=== PATIENT | female | born 1980 | race Two or more races ===

== ENCOUNTER 2019-05-20 10:56 | Inpatient (IN) | payer SELFPAY ==
[2019-05-20] MEDS ORDERED: Sodium Chloride 0.9% 10 ML Syringe FLUSH PRN (11:07)
[2019-05-20] MEDS ORDERED: Nalbuphine 10 MG/ML Syringe IVPUSH PRN (11:07)
[2019-05-20] MEDS ORDERED: Ondansetron 4 MG/2 ML SDV IVPUSH PRN (11:07)
--- NOTE | 2019-05-20 11:09 | PCM.LDHP ---
L&D History of Present Illness - General Date of Service: 05/20/19 Admit Problem/Dx: Patient Status Order with Admit Dx/Problem 05/20/19 11:07 Patient Status [ADT] Routine Admission Diagnosis/Problem Admission Diagnosis/Problem Decreased movements in third trimester Source of Information: Patient History Limitations: Reports: No Limitations - History of Present Illness Introduction:: Patient is a 39-year-old at 40-0/7 weeks gestation who presents for induction of labor after clinic appointment earlier today. At her clinic appointment noted concerns of decreased movement. She had similar concerns about a week ago. However, this week nonreactive NST was found with testing. Otherwise doing well. Some cramping and pressure. 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 (Approximate): - Past Surgical History Female Surgical History: Reports: Breast Implant Social & Family History - Tobacco Use Smoking Status *Q: Never Smoker - Alcohol Use Alcohol Use History: No - Recreational Drug Use Recreational Drug Use: No H&P Review of Systems - Review of Systems: Review Of Systems: See Below General: Reports: No Symptoms Pulmonary: Reports: No Symptoms Cardiovascular: Reports: No Symptoms Gastrointestinal: Reports: Abdominal Pain (cramping) Genitourinary: Reports: No Symptoms Musculoskeletal: Reports: No Symptoms Psychiatric: Reports: No Symptoms Neurological: Reports: No Symptoms L&D Exam - Exam Exam: See Below - OB Specific Contraction Intensity: Irritability Movement: Active Heart Tones: Present Heart Tones per Min: 125 Heart Rate (FHR) Variability: Moderate (6-25 bmp) Presentation: Vertex - Jackson Score Jackson Score Cervix Position: Midposition Jackson Score Consistency: Soft Jackson Score Effacement: 51-70% Jackson Score Dilation: 3-4 cm Jackson Score Infant's Station: -2 Jackson Score Total: 8 - Exam General: Alert, Oriented, Cooperative Lungs: Clear to Auscultation, Normal Respiratory Effort Cardiovascular: Regular Rate, Regular Rhythm GI/Abdominal Exam: Soft, Non-Tender Genitourinary: Normal external exam Extremities: Normal Inspection Skin: Warm, Dry, Intact - Problem List (1) 40 weeks gestation of SNOMED Code(s): 92793146 ICD Code: Z3A.40 - 40 WEEKS GESTATION OF Status: Acute Current Visit: Yes (2) Decreased movement SNOMED Code(s): 142537049 ICD Code: O36.8190 - DECREASED MOVEMENTS, UNSP TRIMESTER, UNSP Status : Acute Current Visit: Yes Qualifiers: Fetus number: single or unspecified fetus Trimester: third trimester Qualified Code(s): O36.8130 - Decreased movements, third trimester, not applicable or unspecified Problem List Initiated/Reviewed/Updated: Yes Orders Last 24hrs: Active Orders 24 hr Category Date Time Status Patient Status [ADT] Routine ADT 05/20/19 11:07 Ordered Communication Order [RC] ASDIRECTED Care 05/20/19 11:07 Ordered Communication Order [RC] ASDIRECTED Care 05/20/19 11:07 Ordered Communication Order [RC] ASDIRECTED Care 05/20/19 11:07 Ordered Heart Tones [RC] ASDIRECTED Care 05/20/19 11:07 Ordered Non Stress Test [RC] PER UNIT ROUTINE Care 05/20/19 11:07 Ordered Notify Provider [RC] ASDIRECTED Care 05/20/19 11:07 Ordered Notify Provider [RC] PRN Care 05/20/19 11:07 Ordered Peripheral IV Care [RC] . DIRECTED Care 05/20/19 11:07 Ordered Up ad Rubina [RC] ASDIRECTED Care 05/20/19 11:07 Ordered Vaginal Exam [RC] ASDIRECTED Care 05/20/19 11:07 Ordered Vital Signs [RC] ASDIRECTED Care 05/20/19 11:07 Ordered Regular Diet [DIET] Diet 05/20/19 Lunch Ordered CBC W/O DIFF,HEMOGRAM [HEME] Routine Lab 05/20/19 11:07 Ordered RAPID PLASMA REAGIN,RPR [CHEM] Routine Lab 05/20/19 11:07 Ordered TYPE AND SCREEN [BBK] Routine Lab 05/20/19 11:07 Ordered Lactated Ringers [Ringers, Lactated] 1,000 ml Med 05/20/19 11:15 Ordered IV ASDIRECTED Nalbuphine [Nubain] Med 05/20/19 11:07 Ordered 10 mg IVPUSH Q2H PRN Ondansetron [Zofran] Med 05/20/19 11:07 Ordered 4 mg IVPUSH Q4H PRN Oxytocin/Lactated Ringers [Pitocin in LR 10 Units/1,000 Med 05/20/19 11:15 Ordered ML] 10 unit in 1,000 ml IV .CONTINUOUS Oxytocin/Lactated Ringers [Pitocin in LR 10 Units/1,000 Med 05/20/19 11:15 Ordered ML] 10 unit in 1,000 ml IV TITRATE Sodium Chloride 0.9% [Saline Flush] Med 05/20/19 11:07 Ordered 10 ml FLUSH ASDIRECTED PRN Electronic Heart Tones Ext w TOCO [WOMSER] Ot 05/20/19 11:07 Ordered Routine Electronic Heart Tones Internal [WOMSER] Per Unit Ot 05/20/19 11:07 Ordered Routine Peripheral IV Insertion Adult [OM.PC] Routine Ot 05/20/19 11:07 Ordered Resuscitation Status Routine Resus Stat 05/20/19 11:07 Ordered Assessment/Plan Comment:: * Labs to be done * GBS negative, no need for antibiotics * Pitoicin for IOL. AROM when able * Pain management per patient preference * Anticipate
[2019-05-20] MEDS ORDERED: Oxytocin/Lactated Ringers 10 UNIT/1,000 ML BAG IV SCH ×2 (11:15)
[2019-05-20] MEDS: Lactated Ringers 1,000 ML IV SCH ×3 (12:06→20:59)
[2019-05-20] MEDS ORDERED: ePHEDrine 50 MG/ML SDV IVPUSH PRN (12:20)
[2019-05-20] MEDS ORDERED: diphenhydrAMINE 50 MG/ML SDV IVPUSH PRN (12:20)
[2019-05-20] MEDS ORDERED: fentaNYL/Bupivacaine/NS 2 MCG-0.125% 250 ML EPIDUR PRN (12:20)
[2019-05-20] MEDS ORDERED: fentaNYL 100 MCG/2 ML SDV EPIDUR PRN (12:20)
--- NOTE | 2019-05-20 12:24 | PCM.PREANE ---
Preanesthetic Assessment - Procedure Proposed Procedure: keyla - Anesthesia/Transfusion/Family Hx Anesthesia History: Prior Anesthesia Without Reaction Family History of Anesthesia Reaction: No Transfusion History: No Prior Transfusion(s) - Review of Systems General: No Symptoms Pulmonary: No Symptoms Cardiovascular: No Symptoms Gastrointestinal: No Symptoms Neurological: No Symptoms Other: Reports: None - Physical Assessment Vital Signs: Last Vital Signs Temp 99.1 F 05/20/19 11:11 Pulse 73 05/20/19 11:11 Resp 16 05/20/19 11:11 BP 116/66 05/20/19 11:11 Pulse Ox 97 05/20/19 11:11 Height: 5 ft 5 in Weight: 87.09 kg ASA Class: 2 Mental Status: Alert & Oriented x3 Airway Class: Mallampati = 1 Dentition: Reports: Normal Dentition, Missing Tooth/Teeth Thyro-Mental Finger Breadths: 3 (braces) Mouth Opening Finger Breadths: 3 ROM/Head Extension: Full Lungs: Clear to Auscultation, Normal Respiratory Effort Cardiovascular: Regular Rate, Regular Rhythm - Lab Values: Laboratory Last Values WBC 12.24 K/mm3 (3.98-10.04) H 05/20/19 11:35 RBC 4.39 M/mm3 (3.98-5.22) 05/20/19 11:35 Hgb 14.0 gm/dl (11.2-15.7) 05/20/19 11:35 Hct 41.5 % (34.1-44.9) 05/20/19 11:35 MCV 94.5 fl (79.4-94.8) 05/20/19 11:35 MCH 31.9 pg (25.6-32.2) 05/20/19 11:35 MCHC 33.7 g/dl (32.2-35.5) 05/20/19 11:35 RDW Std Deviation 43.5 fL (36.4-46.3) 05/20/19 11:35 Plt Count 189 K/mm3 (182-369) 05/20/19 11:35 MPV 11.8 fl (9.4-12.3) 05/20/19 11:35 - Allergies Allergies/Adverse Reactions: Allergies Allergy/AdvReac Type Severity Reaction Status Date / Time No Known Allergies Allergy Verified 03/31/19 05:11 - Blood Blood Available: No - Acknowledgements Anesthesia Type Planned: Epidural Pt an Appropriate Candidate for the Planned Anesthesia: Yes Alternatives and Risks of Anesthesia Discussed w Pt/Guardian: Yes Pt/Guardian Understands and Agrees with Anesthesia Plan: Yes PreAnesthesia Questionnaire Cardiovascular History: Reports: None Respiratory History: Reports: None Gastrointestinal History: Reports: None 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 Musculoskeletal History: Reports: None Oncologic (Cancer) History: Reports: None - Past Surgical History Female Surgical History: Reports: Breast Implant - History Comment History Comment: vitamin c and and mg omega3 - SUBSTANCE USE Smoking Status *Q: Never Smoker Tobacco Use Within Last Twelve Months: No Second Hand Smoke Exposure: Yes Days Per Week of Alcohol Use: 0 Recreational Drug Use History: No - CURRENT (IN HOUSE) MEDS Current Meds: Current Medications Lactated Ringer's (Ringers, Lactated) 1,000 mls @ 40 mls/hr IV ASDIRECTED THERESA Last Admin: 05/20/19 12:06 Dose: 40 mls/hr Oxytocin/Lactated Ringer's (Pitocin In Lr 10 Units/1,000 Ml) 10 unit in 1,000 mls @ 12 mls/hr IV TITRATE THERESA; Protocol Last Admin: 05/20/19 12:07 Dose: 2 munits/min, 12 mls/hr Oxytocin/Lactated Ringer's (Pitocin In Lr 10 Units/1,000 Ml) 10 unit in 1,000 mls @ 500 mls/hr IV .CONTINUOUS THERESA Nalbuphine HCl (Nubain) 10 mg IVPUSH Q2H PRN PRN Reason: Pain Ondansetron HCl (Zofran) 4 mg IVPUSH Q4H PRN PRN Reason: Nausea/Vomiting Sodium Chloride (Saline Flush) 10 ml FLUSH ASDIRECTED PRN PRN Reason: Keep Vein Open
--- NOTE | 2019-05-20 19:12 | PCM.DEL ---
L & D Note - General Info Date of Service: 05/20/19 - Delivery Note Labor: Induced by ARM, Induced by Oxytocin Delivery Outcome: Livebirth Infant Delivery Method: Spontaneous Vaginal Delivery-Single Infant Delivery Mode: Spontaneous Presentation: Right Occiput Anterior (ELEANOR) Nuchal Cord: None Anesthesia Type: Epidural Amniotic Fluid Description: Clear Episiotomy Type: None Laceration: 2nd Degree, Perineal, Other (periclitoral) Suture type: Vicryl Suture size: 2-0 Placenta: Intact, Abnormal Cord: 3 Vessels Estimated Blood Loss: 300 [place]: Bulb Syringe, Stimulated, Warmed, [place] Used, Warmer Used Delivery Comments (Free Text/Narrative):: patient found to be complete and began pushing. With maternal pushing effort head delivered from an ELEANOR presentation. No nuchal cord present. With gentle downward traction the shoulders and body delivered. Infant placed on maternal abdomen. Cord clamped and cut. Cord blood obtained. Placenta allowed time to separate and expelled intact. Inspection of the perineum showed a 2nd degree laceration which was repaired with a 2-0 vicryl in the typical fashion. Also notable was brisk bleeding from a periclitoral source. This was controlled with several 3-0 vicryl sutures. - General Info Date of Service: 05/20/19 - Patient Data Vitals - Most Recent: Last Vital Signs Temp 37.3 C 05/20/19 11:11 Pulse 73 05/20/19 11:11 Resp 16 05/20/19 11:11 BP 116/66 05/20/19 11:11 Pulse Ox 97 05/20/19 11:11 Weight - Most Recent: 87.09 kg I&O - Last 24 Hours: Intake & Output 05/20/19 05/20/19 05/20/19 06:59 14:59 22:59 Intake Total 1999 120 Output Total 350 Balance 1999 - - Problem List & Annotations (1) 40 weeks gestation of SNOMED Code(s): 46690745 Code(s): Z3A.40 - 40 WEEKS GESTATION OF Status: Acute Current Visit: Yes (2) Decreased movement SNOMED Code(s): 205568498 Code(s): O36.8190 - DECREASED MOVEMENTS, UNSP TRIMESTER, UNSP Status : Acute Current Visit: Yes Qualifiers: Fetus number: single or unspecified fetus Trimester: third trimester Qualified Code(s): O36.8130 - Decreased movements, third trimester, not applicable or unspecified (3) Vaginal delivery SNOMED Code(s): 304078200 Code(s): O80 - ENCOUNTER FOR FULL-TERM UNCOMPLICATED DELIVERY Status: Acute Current Visit: Yes - Problem List Review Problem List Initiated/Reviewed/Updated: Yes - My Orders Last 24 Hours: My Active Orders 05/20/19 11:07 Patient Status [ADT] Routine Communication Order [RC] ASDIRECTED Communication Order [RC] ASDIRECTED Communication Order [RC] ASDIRECTED Heart Tones [RC] ASDIRECTED Notify Provider [RC] ASDIRECTED Notify Provider [RC] PRN Peripheral IV Care [RC] . DIRECTED Up ad Rubina [RC] ASDIRECTED Vaginal Exam [RC] ASDIRECTED Vital Signs [RC] ASDIRECTED Nalbuphine [Nubain] 10 mg IVPUSH Q2H PRN Ondansetron [Zofran] 4 mg IVPUSH Q4H PRN Sodium Chloride 0.9% [Saline Flush] 10 ml FLUSH ASDIRECTED PRN Electronic Heart Tones Ext w TOCO [WOMSER] Routine Electronic Heart Tones Internal [WOMSER] Per Unit Routine Peripheral IV Insertion Adult [OM.PC] Routine Resuscitation Status Routine 05/20/19 11:15 Lactated Ringers [Ringers, Lactated] 1,000 ml IV ASDIRECTED Oxytocin/Lactated Ringers [Pitocin in LR 10 Units/1,000 ML] 10 unit in 1,000 ml IV .CONTINUOUS Oxytocin/Lactated Ringers [Pitocin in LR 10 Units/1,000 ML] 10 unit in 1,000 ml IV TITRATE 05/20/19 11:35 RAPID PLASMA REAGIN,RPR [CHEM] Routine 05/20/19 13:01 PATIENT RETYPE [BBK] Routine 05/20/19 Lunch Regular Diet [DIET] - Assessment Assessment:: 39 y/o G2 now P2 PPD#0 from at 40 0/7 wks - Plan Plan:: * Routine cares * Breast feeding * Discharge home in 1-2 days
[2019-05-20] MEDS ORDERED: Acetaminophen 325 MG Tab PO PRN (19:31)
[2019-05-20] MEDS ORDERED: Witch Hazel Medicated Pads 40/Jar TOP PRN (19:31)
[2019-05-20] MEDS ORDERED: Benzocaine/Menthol 20%-0.5% Spray 56 GM Canister TOP PRN (19:31)
[2019-05-20] MEDS: Docusate Sodium 100 MG Cap PO PRN (20:02)
[2019-05-20] MEDS: Ibuprofen 600 MG Tab PO PRN (20:02)
[2019-05-21] MEDS ORDERED: Bupivacaine 0.25% 10 ML SDV ONE
--- NOTE | 2019-05-21 07:10 | PCM.PNPP ---
- General Info Date of Service: 05/21/19 Functional Status: Reports: Pain Controlled, Tolerating Diet, Ambulating, Urinating - Review of Systems General: Reports: No Symptoms Pulmonary: Reports: No Symptoms Cardiovascular: Reports: No Symptoms Gastrointestinal: Reports: No Symptoms Genitourinary: Reports: No Symptoms Musculoskeletal: Reports: No Symptoms Systems Review Comment:: Doing better since overnight. Did have a syncopal episode when first got up after delivery. No further concerns - Patient Data Vital Signs - Most Recent: Last Vital Signs Temp 36.7 C 05/21/19 03:05 Pulse 71 05/21/19 03:05 Resp 14 05/21/19 03:05 BP 92/50 L 05/21/19 03:05 Pulse Ox 98 05/21/19 03:05 Weight - Most Recent: 87.09 kg I&O - Last 24 Hours: Intake & Output 05/20/19 05/21/19 05/21/19 22:59 06:59 14:59 Intake Total 120 3500 Output Total 350 Balance -230 3500 Lab Results - Last 24 Hours: Laboratory Results - last 24 hr 05/20/19 05/20/19 05/20/19 Range/Units 11:35 11:35 11:35 WBC 12.24 H (3.98-10.04) K/mm3 RBC 4.39 (3.98-5.22) M/mm3 Hgb 14.0 (11.2-15.7) gm/dl Hct 41.5 (34.1-44.9) % MCV 94.5 (79.4-94.8) fl MCH 31.9 (25.6-32.2) pg MCHC 33.7 (32.2-35.5) g/dl RDW Std Deviation 43.5 (36.4-46.3) fL Plt Count 189 (182-369) K/mm3 MPV 11.8 (9.4-12.3) fl RPR Non-reactive (NONREACTIVE) Blood Type O POSITIVE Gel Antibody Screen Negative Med Orders - Current: Current Medications Acetaminophen (Tylenol) 650 mg PO Q4H PRN PRN Reason: mild pain or fever Benzocaine/Menthol (Dermoplast Pain Relief Jackson) 0 gm TOP ASDIRECTED PRN PRN Reason: Perineal Comfort Measure Last Admin: 05/20/19 20:03 Dose: 1 canister Docusate Sodium (Colace) 100 mg PO BID PRN PRN Reason: Constipation Last Admin: 05/20/19 20:02 Dose: 100 mg Ibuprofen (Motrin) 600 mg PO Q6H PRN PRN Reason: Mild pain or fever Last Admin: 05/20/19 20:02 Dose: 600 mg Witch Mulu (Tucks) 1 pad TOP ASDIRECTED PRN PRN Reason: Perineal Comfort Measure Last Admin: 05/20/19 20:02 Dose: 1 tub Discontinued Medications Diphenhydramine HCl (Benadryl) 25 mg IVPUSH Q6H PRN PRN Reason: pruritis Ephedrine Sulfate (Ephedrine Sulfate) 5 mg IVPUSH ASDIRECTED PRN PRN Reason: Hypotension Fentanyl (Sublimaze) 100 mcg EPIDUR Q3H PRN PRN Reason: Pain Last Admin: 05/20/19 15:36 Dose: 100 mcg Fentanyl/Bupivacaine HCl (Fentanyl/Bupivacaine/Ns 2 Mcg-0.125% 250 Ml) 250 ml EPIDUR CONTINUOUS PRN PRN Reason: Pain Last Admin: 05/20/19 15:37 Dose: 250 ml Lactated Ringer's (Ringers, Lactated) 1,000 mls @ 40 mls/hr IV ASDIRECTED THERESA Last Admin: 05/20/19 20:59 Dose: 40 mls/hr Oxytocin/Lactated Ringer's (Pitocin In Lr 10 Units/1,000 Ml) 10 unit in 1,000 mls @ 12 mls/hr IV TITRATE THERESA; Protocol Last Titration: 05/20/19 14:41 Dose: 8 munits/min, 48 mls/hr Oxytocin/Lactated Ringer's (Pitocin In Lr 10 Units/1,000 Ml) 10 unit in 1,000 mls @ 500 mls/hr IV .CONTINUOUS THERESA Last Admin: 05/20/19 20:59 Dose: 500 mls/hr Nalbuphine HCl (Nubain) 10 mg IVPUSH Q2H PRN PRN Reason: Pain Ondansetron HCl (Zofran) 4 mg IVPUSH Q4H PRN PRN Reason: Nausea/Vomiting Sodium Chloride (Saline Flush) 10 ml FLUSH ASDIRECTED PRN PRN Reason: Keep Vein Open - Interaction Disposition, : [place] in Room with Family Interaction: Holding Feeding: Breastfed Infant; Nursed Well Support Person: Significant Other - Recovery Exam Fundal Tone: Firm Fundal Level: 1 Fingerbreadths Below Umbilicus Fundal Placement: Midline Lochia Amount: Small Lochia Color: Rubra/Red Perineum Description: Other (see below) Other Perinuem Description: 2nd degree lac with repair Episiotomy/Laceration: Approximated Bladder Status: Voiding Urinary Elimination: Voided - Exam General: Alert, Oriented, Cooperative GI/Abdominal Exam: Soft, Non-Tender Extremities: Normal Inspection Skin: Warm, Dry, Intact - Problem List & Annotations (1) 40 weeks gestation of SNOMED Code(s): 66221584 Code(s): Z3A.40 - 40 WEEKS GESTATION OF Status: Acute Current Visit: Yes (2) Decreased movement SNOMED Code(s): 002414365 Code(s): O36.8190 - DECREASED MOVEMENTS, UNSP TRIMESTER, UNSP Status : Acute Current Visit: Yes Qualifiers: Fetus number: single or unspecified fetus Trimester: third trimester Qualified Code(s): O36.8130 - Decreased movements, third trimester, not applicable or unspecified (3) Vaginal delivery SNOMED Code(s): 790231709 Code(s): O80 - ENCOUNTER FOR FULL-TERM UNCOMPLICATED DELIVERY Status: Acute Current Visit: Yes - Problem List Review Problem List Initiated/Reviewed/Updated: Yes - My Orders Last 24 Hours: My Active Orders 05/20/19 11:07 Communication Order [RC] ASDIRECTED Communication Order [RC] ASDIRECTED Communication Order [RC] ASDIRECTED Heart Tones [RC] ASDIRECTED Notify Provider [RC] ASDIRECTED Notify Provider [RC] PRN Peripheral IV Care [RC] . DIRECTED Up ad Rubina [RC] ASDIRECTED Vaginal Exam [RC] ASDIRECTED Vital Signs [RC] ASDIRECTED Resuscitation Status Routine 05/20/19 19:31 Activity as Tolerated [RC] PER UNIT ROUTINE Vital Signs [RC] 03,09,15,21 Acetaminophen [Tylenol] 650 mg PO Q4H PRN Benzocaine/Menthol [Dermoplast Pain Relief [place]] See Dose Instructions TOP ASDIRECTED PRN Docusate Sodium [Colace] 100 mg PO BID PRN Ibuprofen [Motrin] 600 mg PO Q6H PRN Witch Mulu [Tucks] 1 pad TOP ASDIRECTED PRN Assess Lochia [WOMSER] Per Unit Routine Assess Uterine Involution [WOMSER] Per Unit Routine Breast Pump [WOMSER] Per Unit Routine Heat Therapy [OM.PC] PRN Ice Therapy [OM.PC] Per Unit Routine Perineal Care [OM.PC] Per Unit Routine Peripheral IV Discontinue [OM.PC] Routine Sitz Bath [OM.PC] Per Unit Routine 05/20/19 Dinner Regular Diet [DIET] 05/21/19 19:31 Heat Therapy [OM.PC] PRN - Assessment Assessment:: 39 y/o G2 now P2 PPD#1 from at 40 0/7 wks - Plan Plan:: * Routine cares * Breast feeding * Discharge home today vs tomorrow
--- NOTE | 2019-05-21 07:36 | PCM48HPAN ---
Post Anesthesia Note - EVALUATION WITHIN 48HRS OF ANESTHETIC Vital Signs in Normal Range: Yes Patient Participated in Evaluation: Yes Respiratory Function Stable: Yes Airway Patent: Yes Cardiovascular Function Stable: Yes Hydration Status Stable: Yes Pain Control Satisfactory: Yes Nausea and Vomiting Control Satisfactory: Yes Mental Status Recovered: Yes Vital Signs: Last Vital Signs Temp 36.7 C 05/21/19 03:05 Pulse 71 05/21/19 03:05 Resp 14 05/21/19 03:05 BP 92/50 L 05/21/19 03:05 Pulse Ox 98 05/21/19 03:05 - COMMENTS/OBSERVATIONS Free Text/Narrative:: no anesthesia complications noted
[2019-05-21] MEDS: Ibuprofen 600 MG Tab PO PRN (09:06)
[2019-05-21] MEDS: Docusate Sodium 100 MG Cap PO PRN (09:06)
--- NOTE | 2019-05-21 17:35 | PCM.DCSUM1 ---
Discharge Summary - Discharge Data Discharge Date: 05/21/19 Discharge Disposition: Home, Self-Care 01 Condition: Good - Referral to Home Health Primary Care Physician: Cheryl Hidalgo MD - Discharge Diagnosis/Problem(s) (1) 40 weeks gestation of SNOMED Code(s): 40607607 ICD Code: Z3A.40 - 40 WEEKS GESTATION OF Status: Acute (2) Decreased movement SNOMED Code(s): 237926662 ICD Code: O36.8190 - DECREASED MOVEMENTS, UNSP TRIMESTER, UNSP Status : Acute Qualifiers: Fetus number: single or unspecified fetus Trimester: third trimester Qualified Code(s): O36.8130 - Decreased movements, third trimester, not applicable or unspecified (3) Vaginal delivery SNOMED Code(s): 216654060 ICD Code: O80 - ENCOUNTER FOR FULL-TERM UNCOMPLICATED DELIVERY Status: Acute - Patient Summary/Data Complications: None Recommended Follow-up Testing/Procedures: Follow up in 3-6 weeks for check Hospital Course: Patient is a 39 y/o at 40 0/7 wks who presented for IOL after clinic appt with concerns of decreased FM and non reactive NST. IOL done with pitocin and AROM. She progressed well to complete dilation and underwent an uncomplicated . See delivery note. she did well and was discharged home on PPD#1 - Patient Instructions Diet: Regular Diet as Tolerated Activity: As Tolerated Activity, Other: Pelvic rest for 6 weeks Driving: May Drive Today Showering/Bathing: May Shower Showering/Bathing, Other: May Bathe Notify Provider of: Fever, Increased Pain, Swelling and Redness, Drainage, Nausea and/or Vomiting - Discharge Plan *PRESCRIPTION DRUG MONITORING PROGRAM REVIEWED*: No *COPY OF PRESCRIPTION DRUG MONITORING REPORT IN PATIENT RAFAELA: No Home Medications: Home Meds Acetaminophen [Tylenol] 650 mg PO Q4H PRN tablet 05/21/19 [Rx] Ibuprofen [Motrin] 600 mg PO Q6H PRN tablet 05/21/19 [Rx] Patient Handouts: Vaginal Delivery, Care After Referrals: Cheryl Hidalgo MD [Primary Care Provider] - (3-6 weeks for exam) - Discharge Summary/Plan Comment DC Time >30 min.: No - Patient Data Vitals - Most Recent: Last Vital Signs Temp 36.4 C 05/21/19 08:41 Pulse 67 05/21/19 15:50 Resp 15 05/21/19 15:50 BP 95/57 L 05/21/19 15:50 Pulse Ox 98 05/21/19 15:50 Weight - Most Recent: 87.09 kg I&O - Last 24 hours: Intake & Output 05/21/19 05/21/19 05/21/19 06:59 14:59 22:59 Intake Total 3500 300 Balance 3500 300 Lab Results - Last 24 hrs: Laboratory Results - last 24 hr 05/20/19 Range/Units 11:35 RPR Non-reactive (NONREACTIVE) Med Orders - Current: Current Medications Acetaminophen (Tylenol) 650 mg PO Q4H PRN PRN Reason: mild pain or fever Benzocaine/Menthol (Dermoplast Pain Relief [place]) 0 gm TOP ASDIRECTED PRN PRN Reason: Perineal Comfort Measure Last Admin: 05/20/19 20:03 Dose: 1 canister Docusate Sodium (Colace) 100 mg PO BID PRN PRN Reason: Constipation Last Admin: 05/21/19 09:06 Dose: 100 mg Ibuprofen (Motrin) 600 mg PO Q6H PRN PRN Reason: Mild pain or fever Last Admin: 05/21/19 09:06 Dose: 600 mg Witch Mulu (Tucks) 1 pad TOP ASDIRECTED PRN PRN Reason: Perineal Comfort Measure Last Admin: 05/20/19 20:02 Dose: 1 tub Discontinued Medications Bupivacaine HCl (Sensorcaine-Mpf 0.25%) 10 ml .ROUTE .STK-MED ONE Stop: 05/21/19 00:01 Diphenhydramine HCl (Benadryl) 25 mg IVPUSH Q6H PRN PRN Reason: pruritis Ephedrine Sulfate (Ephedrine Sulfate) 5 mg IVPUSH ASDIRECTED PRN PRN Reason: Hypotension Fentanyl (Sublimaze) 100 mcg EPIDUR Q3H PRN PRN Reason: Pain Last Admin: 05/20/19 15:36 Dose: 100 mcg Fentanyl/Bupivacaine HCl (Fentanyl/Bupivacaine/Ns 2 Mcg-0.125% 250 Ml) 250 ml EPIDUR CONTINUOUS PRN PRN Reason: Pain Last Admin: 05/20/19 15:37 Dose: 250 ml Lactated Ringer's (Ringers, Lactated) 1,000 mls @ 40 mls/hr IV ASDIRECTED THERESA Last Admin: 05/20/19 20:59 Dose: 40 mls/hr Oxytocin/Lactated Ringer's (Pitocin In Lr 10 Units/1,000 Ml) 10 unit in 1,000 mls @ 12 mls/hr IV TITRATE THERESA; Protocol Last Titration: 05/20/19 14:41 Dose: 8 munits/min, 48 mls/hr Oxytocin/Lactated Ringer's (Pitocin In Lr 10 Units/1,000 Ml) 10 unit in 1,000 mls @ 500 mls/hr IV .CONTINUOUS THERESA Last Admin: 05/20/19 20:59 Dose: 500 mls/hr Nalbuphine HCl (Nubain) 10 mg IVPUSH Q2H PRN PRN Reason: Pain Ondansetron HCl (Zofran) 4 mg IVPUSH Q4H PRN PRN Reason: Nausea/Vomiting Sodium Chloride (Saline Flush) 10 ml FLUSH ASDIRECTED PRN PRN Reason: Keep Vein Open
== END 2019-05-21 19:26 | disposition home or self-care (01) | DRG 807 ==
LOC: JD.OB 10:56 → OBSVTOIN 18:33 → JD.OB 18:34
PROVIDERS: ADMIT Obstetrics & Gynecology; ATTEND Obstetrics & Gynecology
PROC: 10E0XZZ Delivery of Products of Conception, External Approach (ICD-10-PCS; principal; 2019-05-20)
PROC: 0KQM0ZZ Repair Perineum Muscle, Open Approach (ICD-10-PCS; 2019-05-20)
PROC: 10907ZC Drainage of Amniotic Fluid, Therapeutic from Products of Conception, Via Natural or Artificial Opening (ICD-10-PCS; 2019-05-20)
PROC: 3E033VJ Introduction of Other Hormone into Peripheral Vein, Percutaneous Approach (ICD-10-PCS; 2019-05-20)
PROC: 3E0R3BZ Introduction of Anesthetic Agent into Spinal Canal, Percutaneous Approach (ICD-10-PCS; 2019-05-20)
DX: O36.8130 Decreased fetal movements, third trimester, not applicable or unspecified (principal); Z37.0 Single live birth; O70.1 Second degree perineal laceration during delivery; Z3A.40 40 weeks gestation of pregnancy
CPT/HCPCS: 36415; 51701; 51702; 59020; 59409; 85027; 86592; 86850; 86900; 86901; A9270-GY; J2590; J3010; J3490; J7120

== ENCOUNTER 2019-07-04 19:41 | Emergency (ER) | payer SELFPAY ==
--- NOTE | 2019-07-04 20:11 | EDM.PDOC ---
ED HPI GENERAL MEDICAL PROBLEM - General Chief Complaint: ENT Problem Stated Complaint: FEVER/THROAT CLOSING Time Seen by Provider: 07/04/19 19:55 Source of Information: Reports: Patient, Family (Daughter + other teen) History Limitations: Reports: No Limitations - History of Present Illness INITIAL COMMENTS - FREE TEXT/NARRATIVE: Ms. Bagley is a pleasant 39-year-old woman with no chronic medical problems, who states that she developed a severe sore throat yesterday morning, 07/03/2019, then a fever with chills last night, with a Tmax of 105.9 degrees around 16:00 this evening. She states that her throat is so sore that she has difficulty swallowing. She has had nausea, but no emesis. No recent constipation, diarrhea, urinary symptoms, or abdominal pain. No prior similar symptoms. The patient states that she took DayQuil around 18:00 this evening, but no other medicines during her illness, as she is breast-feeding. Here in the ED, the patient is found to be hemodynamically stable, afebrile, saturating 96% on room air. The patient does not have a PCP. Her Automotive Service Assistant is Dr. Cheryl Hidalgo. She did not receive an influenza vaccine this season, and declined an offer to receive one here today. Throat Pain Score (Numeric/FACES): 9 - Related Data Allergies Allergy/AdvReac Type Severity Reaction Status Date / Time No Known Allergies Allergy Verified 03/31/19 05:11 Home Meds: Home Meds Acetaminophen [Tylenol] 650 mg PO Q4H PRN tablet 05/21/19 [Rx] Ibuprofen [Motrin] 600 mg PO Q6H PRN tablet 05/21/19 [Rx] Oseltamivir [Tamiflu] 1 cap PO Q12H #9 cap 07/04/19 [Rx] Past Medical History - Past Surgical History HEENT Surgical History: Reports: Oral Surgery (wisdom teeth extraction) Female Surgical History: Reports: Breast Implant (bilateral) Social & Family History - Family History Family Medical History: Noncontributory - Tobacco Use Smoking Status *Q: Never Smoker - Caffeine Use Caffeine Use: Reports: Tea - Alcohol Use Alcohol Use History: Yes Alcohol Use Frequency: Rarely - Recreational Drug Use Recreational Drug Use: No - Living Situation & Occupation Living situation: Reports: Single, with Significant Other (Boyfriend), with Family (2 daughters) Occupation: Unemployed ED ROS GENERAL - Review of Systems Review Of Systems: Comprehensive ROS is negative, except as noted in HPI. ED EXAM, GENERAL - Physical Exam Exam: See Below Exam Limited By: No Limitations General Appearance: Alert, WD/WN, No Apparent Distress Eye Exam: Bilateral Eye: EOMI, Normal Inspection Ears: Normal External Exam, Normal Canal, Hearing Grossly Normal, Normal TMs ( no erythema at all) Nose: Normal Inspection, Normal Mucosa, No Blood Throat/Mouth: Normal Inspection, Normal Lips, Normal Teeth, Normal Gums, Normal Oropharynx (no erythema, no swelling, no tonsillar exudates), Normal Voice, No Airway Compromise Head: Atraumatic, Normocephalic Neck: Normal Inspection, Supple, Non-Tender, Full Range of Motion. No: Lymphadenopathy (L), Lymphadenopathy (R) Respiratory/Chest: No Respiratory Distress, Lungs Clear, Normal Breath Sounds, No Accessory Muscle Use Cardiovascular: Normal Peripheral Pulses, Regular Rate, Rhythm, No Edema, No Gallop, No JVD, No Murmur, No Rub Peripheral Pulses: 4+: Radial (L), Radial (R) GI/Abdominal: Normal Bowel Sounds, Soft, Non-Tender, No Organomegaly, No Distention, No Abnormal Bruit, No Mass (Female) Exam: Deferred Rectal (Female) Exam: Deferred Back Exam: Normal Inspection, Full Range of Motion, NT Extremities: Normal Inspection, Normal Range of Motion, No Pedal Edema, Normal Capillary Refill Neurological: Alert, Oriented, Normal Cognition, No Motor/Sensory Deficits Psychiatric: Normal Affect Skin Exam: Warm, Dry, Intact, Normal Color, No Rash Course - Vital Signs Last Recorded V/S: Last Vital Signs Temp 36.7 C 07/04/19 19:56 Pulse 82 07/04/19 19:56 Resp 20 07/04/19 19:56 BP 100/68 07/04/19 19:56 Pulse Ox 96 07/04/19 19:56 - Orders/Labs/Meds Orders: Active Orders 24 hr Category Date Time Status Chest 2V [CR] Stat Exams 07/04/19 20:05 Taken CULTURE STREP A CONFIRMATION [RM] Stat Lab 07/04/19 20:03 Results STREP SCRN A RAPID W CULT CONF [RM] Stat Lab 02/29/20 20:03 Results Meds: Medications Discontinued Medications Generic Name Dose Route Start Last Admin Trade Name Nathan PRN Reason Stop Dose Admin Oseltamivir Phosphate 75 mg 07/04/19 20:57 07/04/19 21:32 Tamiflu PO 07/04/19 20:58 75 mg ONETIME ONE Administration - Re-Assessments/Exams Free Text/Narrative Re-Assessment/Exam: 07/04/19 20:06 Based on the patient's initial complaint, I was concerned about a peritonsillar cellulitis or abscess, however, the patient's ENT exam, including close inspection of her oropharynx, is completely normal, with no swelling or erythema whatsoever. I swabbed the patient's throat for a rapid strep, and will have the nurse collect an influenza swab. I additionally ordered a chest x -ray, given her history of fever and cough, however, so long as her chest x-ray does not show an infiltrate, I do not see the need for blood work. 07/04/19 20:56 Two-view chest radiograph appears to be grossly normal. The cardiac silhouette is within normal limits. No pulmonary vascular congestion. No pleural effusions. No focal infiltrate. No pneumothorax. Formal read per the Radiologist pending. The patient's rapid strep test returned negative. Her influenza swab is positive for influenza B. The patient will be started on oral Tamiflu, and I will prescribe a 5-day course 07/04/19 21:02 The patient's mother mentioned that she has a 1-month-old infant at home. Current guidelines allow treatment of neonates with Tamiflu, but do not recommend prophylaxis for infants under 3 months of age. Case therefore discussed with Dr. Covarrubias at 21:00. He advises against prophylaxis for children under 1 year of age. He feels that the side effects far outweigh the potential benefits. In the meantime, the patient started feeling lightheaded after she was informed that she has influenza. We are having her lie down on the gurney for a few minutes, until she is feeling better. As for the patient's older daughter who is here in the ED, she has been symptomatic for about 48 hours, therefore there is no need to test or treat, as she is not a candidate for Tamiflu. Departure - Departure Time of Disposition: 21:12 Disposition: Home, Self-Care 01 Condition: Good Clinical Impression: Influenza B - Discharge Information *PRESCRIPTION DRUG MONITORING PROGRAM REVIEWED*: Not Applicable *COPY OF PRESCRIPTION DRUG MONITORING REPORT IN PATIENT RAFAELA: Not Applicable Prescriptions: Oseltamivir [Tamiflu] 1 cap PO Q12H #9 cap Instructions: Influenza, Adult, [id number] Referrals: Cheryl Hidalgo MD [Primary Care Provider] - Forms: ED Department Discharge Additional Instructions: You were seen in the emergency room after developing a sore throat yesterday, and fever and chills last night, along with some nausea. Work-up in the ER included a rapid strep test, an influenza swab, and a chest x- ray. Your rapid strep test returned negative - you not have strep throat, and your chest x-ray was unremarkable - you do not have pneumonia. Your influenza swab returned positive for influenza type B. This is the cause of your symptoms. You have been started on the anti-influenza medicine Tamiflu, and a prescription for Tamiflu has been sent to the [facility], located in the [facility] grocery store. Take 1 tablet of Tamiflu every 12 hours, starting tomorrow morning, 07/05/2019, as prescribed. As discussed, routine treatment of fever is no longer recommended, however, you may take [id number] Tylenol or ibuprofen as needed for discomfort from fever. Do not alternate Tylenol and ibuprofen. Stay adequately hydrated, and if you are hungry, we recommend that you eat a bland diet for the next several days. With respect to your older daughter, as discussed, since she has been symptomatic for 48 hours, she is not a candidate for anti-influenza medicine. With respect to your daughter, unfortunately, she is too young to receive anti-influenza medicine, however, if she becomes ill, may bring her to the ER for evaluation, or have her see her Carton Catcher. If any other problems, please do not hesitate to return to the ER. Sepsis Event Note - Evaluation Sepsis Screening Result: No Definite Risk - Focused Exam Vital Signs: Vital Signs Temp Pulse Resp BP Pulse Ox 07/04/19 19:56 36.7 C 82 20 100/68 96 Date Exam was Performed: 07/04/19 Time Exam was Performed: 21:40 - My Orders Last 24 Hours: My Active Orders 07/04/19 20:03 CULTURE STREP A CONFIRMATION [] Stat STREP SCRN A RAPID W CULT CONF [RM] Stat 07/04/19 20:05 Chest 2V [CR] Stat - Assessment/Plan Last 24 Hours: My Active Orders 07/04/19 20:03 CULTURE STREP A CONFIRMATION [RM] Stat STREP SCRN A RAPID W CULT CONF [RM] Stat 07/04/19 20:05 Chest 2V [CR] Stat
[2019-07-04] MEDS ORDERED: Oseltamivir 75 MG Cap PO ONE (20:57)
--- NOTE | 2019-07-05 06:26 | CR ---
Chest: 2 views of the chest were obtained. Comparison: No prior chest imaging is available. Heart size and mediastinum are normal. Lungs are clear with no acute parenchymal change. Mild scoliosis is noted within the spine. Impression: 1. Finding as noted above. 2. Nothing acute is appreciated on 2 view chest x-ray. Diagnostic code #2 This report was dictated in [place] Standard Time
== END 2019-07-04 21:35 | disposition home or self-care (01) ==
LOC: JD.ED 19:41
DX: J10.1 Influenza due to other identified influenza virus with other respiratory manifestations (principal)
CPT/HCPCS: 71046; 87081; 87430; 87804; 99283; A9270